=== PATIENT | female | born 1995 | race Caucasian/White ===

== ENCOUNTER 2017-04-09 16:29 | Emergency (ER) | payer OTHER ==
[~2017-04-09] VITALS: Ht 160 cm; Wt 68.0 kg
[2017-04-09] MEDS ORDERED: IBUPROFEN 600600 M1 PO (20:56)
[2017-04-09] MEDS ORDERED: TIZANIDINE HCL4 MG PO (20:56)
== END 2017-04-09 21:24 | disposition home or self-care (01) ==
LOC: ER 16:29
DX: S00.83XA Contusion of other part of head, initial encounter (principal); S10.93XA Contusion of unspecified part of neck, initial encounter; Z88.1 Allergy status to other antibiotic agents; Z90.89 Acquired absence of other organs; V43.52XA Car driver injured in collision with other type car in traffic accident, initial encounter; Y93.I9 Activity, other involving external motion; Y92.89 Other specified places as the place of occurrence of the external cause; Y99.8 Other external cause status